=== PATIENT | female | born 1940 | race Caucasian/White ===

== ENCOUNTER → 2018-02-23 14:25 | Outpatient (CLI) | payer MEDICARE, OTHER, SELFPAY ==
[2018-02-23 15:20] LABS: Basophils % 0.8 % (0.1-2.0); Eosinophils # 0.1 K/mm3 (0.0-0.4); Eosinophils % 1.8 % (0.1-12.0); Hematocrit 34.3 % (37.0-47.0); Hemoglobin 10.4 g/dL (12.2-16.2); Lymphocytes # 0.5 K/mm3 (0.7-4.5); Lymphocytes % 14.4 K/mm3 (10-50); Mean Corpuscular HGB Conc 30.5 g/dL (31.8-35.4); Mean Corpuscular Hemoglobin 29.6 pg (27.0-31.2); Mean Corpuscular Volume 97.1 fl (81-99); Mean Platelet Volume 6.6 fl (7.4-10.4); Monocytes # 0.3 K/mm3 (0.1-1.0); Monocytes % 8.7 % (1.7-9.3); Neutrophils # 2.7 K/mm3 (1.8-7.8); Neutrophils % 74.3 % (37.0-80.0); Platelet Count 399 K/mm3 (142-424); Red Blood Count 3.53 M/mm3 (4.20-5.40); Red Cell Distribution Width 14.7 % (11.5-17.5); White Blood Count 3.6 K/mm3 (4.8-10.8)
[2018-02-23 20:00] LABS: Anion Gap 9.1 mEq/L (5-15); Blood Urea Nitrogen 15 mg/dL (7-18); Calcium 8.6 mg/dL (8.5-10.1); Carbon Dioxide 31 mmol/L (21.0-32.0); Chloride 99 mmol/L (98-107); Creatinine,Serum 0.67 mg/dL (0.55-1.02); Estimated Glomerular Filt Rate 85 ml/min (>60); GFR (African American) 103 ML/MIN (>60); Glucose 71 mg/dL (74-106); Potassium 4.1 mmoL/L (3.5-5.1); Sodium 135 mmol/L (136-145)
== END ==
PROVIDERS: PCP Internal Medicine Adolescent Medicine; Visit Provider Surgery
DX: R13.12 Dysphagia, oropharyngeal phase (principal); R13.10 Dysphagia, unspecified
CPT/HCPCS: 36415; 80048; 85025

== ENCOUNTER 2018-02-25 08:41 | Observation (INO) ==
--- NOTE | 2018-02-25 09:31 | Progress Note ---
[facility] Anesthesia Checklist - Patient Identification Patient Identification: Arm Band, Verbal (Name & ) - Structural Data Admitted From: Inpatient Planned Operative Procedure/s: PEG tube placement Consent for Planned Operative Procedure(s) Verified: Yes Verified Documents: Surgical Consent, History and Physical - NPO Status Verified Time NPO: 17:00 - Airway Assessment C-Spine Mobility Assessed: Yes (radiation, Throat/mouth/neck surgery due to cancer) TMJ Mobility Assessed: Yes Dentition: Dentures-good fit (Upper denture, lower missing teeth) - Neurological Assessment Level of Consciousness: Awake Hx Seizures: No Numbness or tingling in extremities: No - Anesthesia Plan Anesthesia Risk discussed: Yes Anesthesia Plan: Verified ASA Class: II Anesthesia Type: MAC [facility] History I have reviewed the patient's past medical history: Yes Medical History: Reports:: Cancer, Hyperlipidemia, Hypertension Denies:: Diabetes Mellitus Type 1, Diabetes Mellitus Type 2, Lung Disease, Seizures - *Social History Smoking Status: Never smoker Alcohol Intake: never Substance Use Type: denies use *Family Hx:: No significant family history
--- NOTE | 2018-02-25 10:13 | Procedure Note ---
- Procedure: Date: 02/25/18 Procedure Performed:: Percutaneous endoscopic gastrostomy (PEG) tube placement Indications:: Dysphagia secondary to radiation therapy Performing Provider:: Sang Lucas MD Referring Provider:: Dr. Patel Sedation:: Monitored anesthesia care Procedure:: After informed consent was obtained the patient was taken to the endoscopy suite. Monitored anesthesia care ensued as she was maintained in a supine position. The gastroscope was advanced into the gastric lumen. The stomach was insufflated. Transillumination and impulse noted. The site of prior percutaneous endoscopic gastrostomy tube was chosen for replacement and the area was infiltrated with 1% lidocaine after appropriate preparation and draping. A small transverse incision was made. A large bore Angiocath was placed in position under direct visualization. The retrieval wire was grasped with a snare and brought back in a retrograde manner. The tube was secured to the retrieval wire and then carefully maneuvered into position. The tube was secured at 2.5 cm. The gastroscope was once again placed in position and the "bumper" was noted to be in good position. No bleeding was noted. The tube was easily rotated. The gastroscope was removed. The tube was placed to drain bag and an abdominal binder was placed in position. The patient was transferred to recovery in stable condition. Findings:: Anchored at 2.5 cm Specimens:: None Recommendations:: Post PEG orders written Complications:: No immediate Estimated blood obtained (mL): 5
--- NOTE | 2018-02-25 13:28 | Pharmacy Consult Notes ---
[facility] Pharmacy VTE Monitoring - Patient Demographics Admission date: 02/25/18 Report Date: 02/25/18 Time: 13:28 Allergies/Adverse Reactions: Patient Allergies levofloxacin [From LEVAQUIN] Allergy (Unknown, Verified 02/24/18 15:17) LOSS OF MEMORY AND CIRCULATION Height: 1.55 m Weight: 44.48 kg - VTE Risk Was VTE Risk Assessment Performed: Yes VTE Score: 2 VTE Risk Level: Low Risk Clinical Trial Participant: No - Prophylaxis VTE Prophylaxis Ordered?: Yes Types of VTE Prophylaxis: TEDS Knee High Location of Applied Device: Bilateral Lower Extremeties
--- NOTE | 2018-02-26 06:42 | Progress Note ---
Subjective Patient reports: no new complaints (Doing well. No complaints overnight. No bleeding from PEG site.) Narrative: No new complaints overnight. No bleeding from PEG site. Pain minimal. Swallowing evaluation anticipated this AM. Exam Vital signs and Labs for Last 24 Hours: Temp Pulse Resp BP Pulse Ox 98.4 F 63 18 96/57 L 98 02/26/18 04:00 02/26/18 04:00 02/26/18 04:00 02/26/18 04:00 02/26/18 04:00 I & O for Last 24 hours: Intake & Output 02/23/18 02/24/18 02/25/18 02/26/18 11:59 11:59 11:59 11:59 Intake Total 200 / 200 940 / 940 Output Total 200 / 200 Balance 200 / 200 740 / 740 Weight 44.48 kg 45.416 kg Narrative: PEG site clean and dry. Abdomen soft and nontender. Progress Note: A&P (1) Dysphagia Status: Acute Assessment and plan: PEG placed. Swallowing evaluation this AM. Discharge after completed. Current Visit: No
--- NOTE | 2018-02-26 08:36 | Progress Note ---
Internal Medicine - PN: Subj *Date: 02/26/18 *Time: 08:33 Interval history: Appreciate surgical care of patient. As patient's primary metal stamper, I prescribed the GT insertion secondary to severe malnutrition and 32 pound wt loss, with no other means of nutrition secondary to surgical and radiation damage to oral structures. This need will persist for over 3 months. She will require Home Health for alf for GT care and instructions and wound care. Exam Vital signs and Labs for Last 24 Hours: Temp Pulse Resp BP Pulse Ox 98.1 F 64 16 99/57 L 96 02/26/18 08:00 02/26/18 08:00 02/26/18 08:00 02/26/18 08:00 02/26/18 08:00 I & O for Last 24 hours: Intake & Output 02/23/18 02/24/18 02/25/18 02/26/18 11:59 11:59 11:59 11:59 Intake Total 200 / 200 1779 / 1779 Output Total 200 / 200 Balance 200 / 200 1579 / 1579 Weight 98 lb 1 oz 100 lb 2 oz Assessment and Plan (1) Dysphagia Current visit: No Status: Acute Qualifiers: Dysphagia type: oropharyngeal phase Qualified Code(s): R13.12 - Dysphagia, oropharyngeal phase Category: Medical Code(s): R13.10 - Dysphagia, unspecified
--- NOTE | 2018-04-01 12:01 | Discharge Summary ---
General - General Admission date:: 02/25/18 Discharge date: 02/26/18 HPI HPI: This is a 77-year-old female with a history of radiation therapy for head neck carcinoma. She has significant/worsening dysphagia and the surgical service was consulted for percutaneous endoscopic gastrostomy tube placement. Hospital Course Hospital Course: The patient convalesced well. She tolerated the procedure and remained afebrile with stable normal vital signs. She was deemed appropriate for discharge on the morning of postoperative day 1. The patient was tolerating feeds at the time of discharge. No sign of bleeding or other postoperative complication noted at time of discharge. Objective Vital signs: Temp Pulse Resp BP Pulse Ox 98.1 F 64 16 99/57 L 98 02/26/18 08:00 02/26/18 08:00 02/26/18 08:00 02/26/18 08:00 02/26/18 08:00 no acute distress - *Routine HEENT Exam Head: Present: atraumatic - *Routine Neck Exam Absent: tenderness - Routine Chest/Breast/Axilla Exam Chest wall: Absent: tenderness - *Routine Respiratory Exam Absent: respiratory distress - *Routine Cardiovascular Exam Present: RRR - *Routine Abdominal Exam Present: soft - *Routine Extremities Exam Present: full ROM - *Routine Neurological Exam Present: alert, oriented X3 - Routine Psychiatric Exam Present: normal affect DS: Diagnosis - Discharge Diagnosis (1) Dysphagia Status: Acute Discharge Plan - Patient Discharge Instructions ACTIVITY: Continue current activity DIET: other (tube feeds as per primary service) Patient Instructions: DI for Esophageal Dysphagia - Follow up Plan Follow up with: Sang Lucas MD [Staff Physician] - 1 week Disposition: Home, Self-Senior Living Medications: Home Medications Medication Instructions Recorded Confirmed Type carvedilol 6.25 mg tablet 6.25 mg PO BID 02/23/18 03/08/18 History Levothyroxine Sodium 50 mcg PO DAILY 02/25/18 03/08/18 History [Levothyroxine 50mcg (0.05mg) Tab] Prescriptions/Medication Reconciliation: No Action carvedilol 6.25 mg tablet 6.25 mg PO BID Levothyroxine Sodium [Levothyroxine 50mcg (0.05mg) Tab] 50 mcg PO DAILY
== END 2018-02-26 12:05 | disposition home or self-care (01) ==
LOC: OUTP 08:41 → 2ND 08:41
PROVIDERS: ADMIT Surgery; ATTEND Surgery
CPT/HCPCS: 92610; 96374; G0378

== ENCOUNTER 2018-04-10 17:40 | Inpatient (IN) ==
[2018-04-10 18:44] LABS: Basophils % 0.2 % (0.1-2.0); Eosinophils % 0.2 % (0.1-12.0); Hematocrit 32.2 % (37.0-47.0); Hemoglobin 10.1 g/dL (12.2-16.2); Lymphocytes # 0.3 K/mm3 (0.7-4.5); Mean Corpuscular HGB Conc 31.3 g/dL (31.8-35.4); Mean Corpuscular Hemoglobin 30.6 pg (27.0-31.2); Mean Corpuscular Volume 97.7 fl (81-99); Mean Platelet Volume 7.4 fl (7.4-10.4); Monocytes # 0.3 K/mm3 (0.1-1.0); Monocytes % 2.4 % (1.7-9.3); Neutrophils # 13.5 K/mm3 (1.8-7.8); Neutrophils % 95.4 % (37.0-80.0); Platelet Count 510 K/mm3 (142-424); Red Blood Count 3.29 M/mm3 (4.20-5.40); Red Cell Distribution Width 15.9 % (11.5-17.5); White Blood Count 14.2 K/mm3 (4.8-10.8)
--- NOTE | 2018-04-10 18:50 | Emergency Department Note ---
ED Disposition Clinical Impression: Hypoxia, Dehydration Pneumonia Qualifiers: Pneumonia type: aspiration pneumonia Aspiration pneumonia type: due to gastric secretions Laterality: left Lung location: lower lobe of lung Qualified Code(s): J69.0 - Pneumonitis due to inhalation of food and vomit Disposition: Still a Patient Condition on Discharge: Fair - Critical Care Critical Care Time: No Attestation: On 04/10/18, the high probability of a clinically significant, sudden or life threatening deterioration of the following system(s) required my full and direct attention, intervention and personal management. The time I documented below is in addition to time spent performing reported procedures but includes the following listed in this critical care notation. Medical Decision Making - Beck Inquiry Pt receiving controlled substance: No Vital Signs: 04/10/18 17:42 04/10/18 18:12 04/10/18 18:42 Temperature Temperature Source Pulse Rate [Left Radial] 85 71 95 H Respiratory Rate 22 20 20 Blood Pressure [Right Arm] 174/97 H 158/84 H 158/90 H Blood Pressure Mean [Right Arm] 122 108 112 Blood Pressure Source [Right Arm] Automatic Cuff Automatic Cuff Automatic Cuff Blood Pressure Position [Right Arm] Sitting Sitting Sitting 02 Sat by Pulse Oximetry 94 L 97 97 Oxygen Delivery Method Nasal Cannula Nasal Cannula Nasal Cannula Oxygen Flow Rate (LPM) 4 4 4 04/10/18 19:38 04/10/18 20:14 04/10/18 20:30 Temperature 99.3 F Temperature Source Rectal Pulse Rate [Left Radial] 80 83 Respiratory Rate 22 28 H Blood Pressure [Right Arm] 152/95 H 146/85 H Blood Pressure Mean [Right Arm] 114 105 Blood Pressure Source [Right Arm] Automatic Cuff Blood Pressure Position [Right Arm] Sitting 02 Sat by Pulse Oximetry 93 L 93 L Oxygen Delivery Method Nasal Cannula Oxygen Flow Rate (LPM) 4 - Lab Data Lab Results 04/10/18 18:25: WBC 14.2 H, RBC 3.29 L, Hgb 10.1 L, Hct 32.2 L, MCV 97.7, MCH 30.6, MCHC 31.3 L, RDW 15.9, Plt Count 510 H, MPV 7.4, Neut % (Auto) 95.4 H, Lymph % (Auto) 2.0 L, [place] % (Auto) 2.4, Eos % (Auto) 0.2, Baso % (Auto) 0.2, Neut # (Auto) 13.5 H, Lymph # (Auto) 0.3 L, [place] # (Auto) 0.3, Eos # (Auto) 0.0, Baso # (Auto) 0.0, Total Counted 100, Neutrophils % (Manual) 57, Band Neutrophils % 23.0 H, Lymphocytes % (Manual) 6 L, Monocytes % (Manual) 3, [place] elocytes % 11.0 H, Platelet Estimate Marked increase, RBC Morphology Normal 04/10/18 18:25: Sodium 125 L, Potassium 3.3 L, Chloride 85 L, Carbon Dioxide 35 H, Anion Gap 8.3, BUN 25 H, Creatinine 0.84, Estimated Creat Clear 32, Estimated GFR 66, Est GFR ( Amer) 80, Glucose 87, Calcium 9.1, Total Bilirubin 0.5, AST 23, ALT 14, Alkaline Phosphatase 70, Troponin I < 0.02, Total Protein 7.7, Albumin 2.5 L, Globulin 5.2 H, Albumin/Globulin Ratio 0.5 L 04/10/18 18:35: Lactate 1.9 Result diagrams: 04/10/18 18:25 04/10/18 18:25 Orders (Tests/Meds): ED MEDICATIONS Generic Name Dose Route Start Last Admin Trade Name Freq PRN Reason Stop Dose Admin Ceftriaxone Sodium 1 gm/ 50 mls @ 100 mls/hr 04/10/18 20:45 Sodium Chloride IV 04/24/18 20:44 Q24H [facility] Protocol Clindamycin Phosphate 900 mg/ 106 mls @ 100 mls/hr 04/10/18 20:45 Sodium Chloride IV 04/24/18 20:44 Q8H [facility] Protocol Discontinued Medications Generic Name Dose Route Start Last Admin Trade Name Freq PRN Reason Stop Dose Admin Azithromycin 500 mg/ Sodium 250 mls @ 250 mls/hr 04/10/18 20:45 Chloride IV 04/24/18 20:44 Q24H [facility] Protocol Potassium Chloride 40 meq 04/10/18 19:09 04/10/18 20:06 Potassium Chloride 20meq/15ml Solution Udc G-TUBE 04/10/18 19:10 40 meq ONCE ONE Administration ORDERS Category Date Time Status Chest XR -- portable [XR chest portable] Stat Exams 04/10/18 17:50 Taken Blood Culture Stat Micro 04/10/18 18:35 Received - ECG Data Tracing #1 EKG interpreted by Matt Blake MD: Rhythm: sinus Rate: 92 Lipscomb: normal Ectopy: none Conduction: normal ST Segment Changes: Nonspecific T Wave Changes: Nonspecific Q Waves: none No evidence of acute ischemia or injury - Physician Consults Physician Consulted: Amanda Time: 19:20 Reason -: Admission Comment/Response: Agrees to admit the patient to the hospital. We discussed the patient's clinical information, including history, exam, laboratory and radiology results and ED course. Per hospital procedure, I will write temporary bridge inpatient orders on the patient. Specific orders requested by the admitting physician: States patient is at risk for aspiration. Rocephin, Zithromax and clindamycin. Oxygen and IV fluids. Medical Decision Narrative: Azithromycin not ordered due to conflict with clindamycin General Adult HPI - General Chief complaint: Shortness of Breath/Dyspnea Stated complaint: SOB Time Seen by Provider: 04/10/18 18:49 Mode of Arrival: EMS Limitations: No Limitations Description of Symptoms (Recalled from ER Triage Doc. by RN): to ed squad pt with hx of head and neck ca 4 years ago with recurrence dx in september 2017 pt finished 60 radiation txs 4 weeks ago. today c/o decreased po intake, pt with feeding tube inplace family also c/o "breathing is heavy" x several days. - History of Present Illness HPI narrative: Brought in by ambulance for altered mental status, difficulty breathing. History is primarily obtained from the patient's and daughter. The patient has a history of axilla facial cancer, multiple surgeries, and is nonverbal. Family states that she is generally weak for months but getting worse. More recently she seems to have increased respiratory congestion and difficulty breathing. Increased mucus production. Today she seemed to be lethargic and difficult to arouse. At this time however, she is awake and alert. No documented fevers. She does not have chronic pulmonary disease. She is not on oxygen or nebulizer treatments at home. Her cancer was diagnosed 4 years ago, stage IV. She has had 3 different surgeries. She just recently went through radiation therapy and will be getting immunotherapy as well after she gets a port placed. She has a feeding tube. Family states she does not take anything by mouth. 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 She currently denies any pain there. - Related Data Home Medications Medication Instructions Recorded Confirmed Levothyroxine Sodium 50 mcg PO DAILY 02/25/18 04/10/18 [Levothyroxine 50mcg (0.05mg) Tab] Ibuprofen [Motrin 400mg 400 mg PO NEEDED PRN 04/10/18 04/10/18 tablet] Miscellaneous [Unknown Home 0 each NOTAPPLIC CONSULT PHARMACY 04/10/18 04/10/18 Medication] Polyethylene Glycol 3350 [Miralax 17 gm PO DAILYP PRN 04/10/18 04/10/18 17gm Packet] Allergies Allergy/AdvReac Type Severity Reaction Status Date / Time levofloxacin [From LEVAQUIN] Allergy Unknown LOSS OF Verified 04/07/18 13:42 MEMORY AND CIRCULATION [facility] History I have reviewed the patient's past medical history: Yes Medical History: Reports:: Cancer, Hyperlipidemia, Hypertension Denies:: Diabetes Mellitus Type 1, Diabetes Mellitus Type 2, Lung Disease, Seizures Other Surgeries: Yes: Other - Social History Smoking Status: Never smoker Alcohol Intake: never Substance Use Type: denies use Occupational Status: disabled - Psychiatric History Expresses thoughts of harming self/others: None Suicide Plan Description: No Plan Family Hx:: No significant family history ROS Obtained: Yes Systems reviewed as appropriate & no additional complaints - Constitutional Constitutional: Reports fatigue, Denies fever(s), Reports poor appetite - Cardiovascular Cardiovascular: Denies chest pain - Respiratory Respiratory: Yes cough, Yes dyspnea, Yes excessive phlegm production - Gastrointestinal Gastrointestingal: Denies: abdominal pain, diarrhea, vomiting Physical Exam - General General appearance: alert Comment: Has a nasal cannula in her mouth. Breathing easily. Awake and alert. Writing on a notebook. - Head Head exam: atraumatic - Expanded ENT Exam Comment: Surgical deformity of maxilla, mandible, oral cavity. - Neck Neck exam: Present: normal inspection, trachea midline - Chest Chest inspection: Present: normal inspection, symmetric chest wall rise - Respiratory Respiratory exam: Present: other (Bilateral rhonchi) - Cardiovascular Cardiovascular exam: Present: regular rate, normal rhythm, normal heart sounds - Abdominal Exam Abdominal exam: Present: soft. Absent: distention, tenderness - Extremities Exam Extremities exam: Present: normal inspection, other (No tenderness of right knee. Full range of motion without pain. No calf tenderness. No swelling of the legs.) - Neurological Exam Neurological exam: Present: alert. Absent: motor sensory deficit - Psychiatric Psychiatric exam: Present: normal affect, normal mood - Skin Skin exam: Present: warm, dry
[2018-04-10 18:57] LABS: Alanine Aminotransferase 14 U/L (12-78); Albumin Level 2.5 gm/dL (3.4-5.0); Albumin/Globulin Ratio 0.5 (1.1-1.8); Alkaline Phosphatase 70 U/L (46-116); Anion Gap 8.3 mEq/L (5-15); Aspartate Amino Transferase 23 U/L (15-37); Bilirubin,Total 0.5 mg/dL (0.2-1.0); Blood Urea Nitrogen 25 mg/dL (7-18); Calcium 9.1 mg/dL (8.5-10.1); Carbon Dioxide 35 mmol/L (21.0-32.0); Chloride 85 mmol/L (98-107); Globulin 5.2 gm/dl (1.3-3.2); Glucose 87 mg/dL (74-106); Potassium 3.3 mmoL/L (3.5-5.1); Sodium 125 mmol/L (136-145); Total Protein,Serum 7.7 gm/dL (6.4-8.2)
[2018-04-10 19:48] LABS: Lymphocytes % 6 % (10-50); Monocytes % 3 % (2-9); Neutrophils % 57 % (42-76); Total Cells Counted 100
[2018-04-10 19:49] LABS: RBC Morphology Normal
[2018-04-11 06:13] LABS: Basophils % 0.2 % (0.1-2.0); Hematocrit 30.4 % (37.0-47.0); Hemoglobin 9.5 g/dL (12.2-16.2); Lymphocytes # 0.3 K/mm3 (0.7-4.5); Lymphocytes % 1.4 % (10-50); Mean Corpuscular HGB Conc 31.1 g/dL (31.8-35.4); Mean Corpuscular Hemoglobin 30.6 pg (27.0-31.2); Mean Corpuscular Volume 98.5 fl (81-99); Mean Platelet Volume 6.8 fl (7.4-10.4); Monocytes # 0.3 K/mm3 (0.1-1.0); Monocytes % 1.7 % (1.7-9.3); Neutrophils # 18.3 K/mm3 (1.8-7.8); Neutrophils % 96.6 % (37.0-80.0); Platelet Count 454 K/mm3 (142-424); Red Blood Count 3.09 M/mm3 (4.20-5.40); Red Cell Distribution Width 15.8 % (11.5-17.5); White Blood Count 18.9 K/mm3 (4.8-10.8)
[2018-04-11 06:18] LABS: Anion Gap 9.4 mEq/L (5-15); Calcium 8.5 mg/dL (8.5-10.1); Potassium 4.4 mmoL/L (3.5-5.1)
--- NOTE | 2018-04-11 07:47 | Pharmacy Consult Notes ---
[facility] Pharmacy VTE Monitoring - Patient Demographics Admission date: 04/10/18 Report Date: 04/11/18 Time: 07:47 Allergies/Adverse Reactions: Patient Allergies levofloxacin [From LEVAQUIN] Allergy (Unknown, Verified 04/07/18 13:42) LOSS OF MEMORY AND CIRCULATION Height: 1.55 m Weight: 41.821 kg Patient Problems: Current Active Problems Pneumonia (Acute) Hypoxia (Acute) Dehydration (Acute) - VTE Risk Labs: VTE Related Lab Results Hgb 9.5 g/dL (12.2-16.2) L 04/11/18 05:21 Hct 30.4 % (37.0-47.0) L 04/11/18 05:21 Plt Count 454 K/mm3 (142-424) H 04/11/18 05:21 BUN 31 mg/dL (7-18) H 04/11/18 05:21 Creatinine 0.85 mg/dL (0.55-1.02) 04/11/18 05:21 Estimated Creat Clear 31 mL/min (50-200) 04/11/18 05:21 VTE Score: 7 VTE Risk Level: Moderate Risk - Prophylaxis VTE Prophylaxis Ordered?: Yes Types of VTE Prophylaxis: TEDS Knee High Location of Applied Device: Bilateral Lower Extremeties - VTE Diagnosis Confirmed Treatment or plan recommended: Continue Current Treatment
--- NOTE | 2018-04-11 08:11 | History & Physical Report ---
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 She has been increasingly weak, had a G-tube placed approximately 4 weeks ago, but in spite of this is continue to lose weight. Her daughter reports that she is only able to get 1-3 cans of food and per day instead of the recommended 5 cans because of "feeling of fullness." On the day of admission she became somewhat confused, lethargic, and was brought to the emergency department. In the ER she was more awake, able to communicate by writing on a note pad and was oriented, but was found to be hyponatremic and have infiltrate consistent with pneumonia. Given her high risk for aspiration, dehydration and hyponatremia she was admitted to hospital for IV antibiotics, IV fluids and further diagnostic testing. [facility] History I have reviewed the patient's past medical history: Yes Medical History: Reports:: Cancer (STAGE 4 SQUAMOUS CELL HEAD AND NECK PER FAMILY), Hyperlipidemia, Hypertension Denies:: Diabetes Mellitus Type 1, Diabetes Mellitus Type 2, Lung Disease, Seizures Other Surgeries: Yes: Other - *Social History Smoking Status: Never smoker Alcohol Intake: never Substance Use Type: denies use Occupational Status: disabled Housing: house Household Members: family - Psychiatric History Expresses thoughts of harming self/others: None Suicide Plan Description: No Plan *Family Hx:: No significant family history Review of Systems - Constitutional Reports anorexia, Reports body ache(s), Reports fatigue, Denies fever(s), Denies headache(s) - Eyes Denies blind spots - ENT Denies abnormal hearing Comments: See H&P. Significant oropharyngeal dysfunction from significant surgical resections - *Cardiovascular Reports shortness of breath, Denies chest pain, Denies chest pain at rest, Denies generalized swelling - *Respiratory Reports change in phlegm color, Reports chest congestion, Reports cough - *Gastrointestinal Reports difficulty swallowing, Reports feeling full early, Denies abdominal pain, Denies belching, Denies coffee ground vomit - *Musculoskeletal Reports abnormal walking, Reports decreased muscle mass, Reports muscle weakness, Denies joint pain, Denies back pain - *Neurologic Reports abnormal walking, Reports behavioral changes, Reports unsteadiness, Reports dizziness Meds Home Medications Medication Instructions Recorded Confirmed Type Levothyroxine Sodium 50 mcg PO DAILY 02/25/18 04/10/18 History [Levothyroxine 50mcg (0.05mg) Tab] Ibuprofen [Motrin 400mg 400 mg PO QIDP PRN 04/10/18 04/11/18 History tablet] Miscellaneous [Unknown Home 0 each NOTAPPLIC CONSULT PHARMACY 04/10/18 04/10/18 History Medication] Polyethylene Glycol 3350 [Miralax 17 gm PO DAILYP PRN 04/10/18 04/10/18 History 17gm Packet] Allergies Allergy/AdvReac Type Severity Reaction Status Date / Time levofloxacin [From LEVAQUIN] Allergy Unknown LOSS OF Verified 04/07/18 13:42 MEMORY AND CIRCULATION Exam Vital signs and Labs for Last 24 Hours: Temp Pulse Resp BP Pulse Ox 98.0 F 68 20 140/80 94 L 04/11/18 04:00 04/11/18 04:00 04/11/18 04:00 04/11/18 04:00 04/11/18 04:00 Laboratory Results - last 24 hr 04/10/18 18:25: WBC 14.2 H, RBC 3.29 L, Hgb 10.1 L, Hct 32.2 L, MCV 97.7, MCH 30.6, MCHC 31.3 L, RDW 15.9, Plt Count 510 H, MPV 7.4, Neut % (Auto) 95.4 H, Lymph % (Auto) 2.0 L, [place] % (Auto) 2.4, Eos % (Auto) 0.2, Baso % (Auto) 0.2, Neut # (Auto) 13.5 H, Lymph # (Auto) 0.3 L, [place] # (Auto) 0.3, Eos # (Auto) 0.0, Baso # (Auto) 0.0, Total Counted 100, Neutrophils % (Manual) 57, Band Neutrophils % 23.0 H, Lymphocytes % (Manual) 6 L, Monocytes % (Manual) 3, Metamyelocytes % 11.0 H, Platelet Estimate Marked increase, RBC Morphology Normal 04/10/18 18:25: Sodium 125 L, Potassium 3.3 L, Chloride 85 L, Carbon Dioxide 35 H, Anion Gap 8.3, BUN 25 H, Creatinine 0.84, Estimated Creat Clear 32, Estimated GFR 66, Est GFR ( Amer) 80, Glucose 87, Calcium 9.1, Total Bilirubin 0.5, AST 23, ALT 14, Alkaline Phosphatase 70, Troponin I < 0.02, Total Protein 7.7, A lbumin 2.5 L, Globulin 5.2 H, Albumin/Globulin Ratio 0.5 L 04/10/18 18:35: Lactate 1.9 04/11/18 05:21: WBC 18.9 H D, RBC 3.09 L, Hgb 9.5 L, Hct 30.4 L, MCV 98.5, MCH 30.6, MCHC 31.1 L, RDW 15.8, Plt Count 454 H, MPV 6.8 L, Neut % (Auto) 96.6 H, Lymph % (Auto) 1.4 L, [place] % (Auto) 1.7, Eos % (Auto) 0.0 L, Baso % (Auto) 0.2, Neut # (Auto) 18.3 H, Lymph # (Auto) 0.3 L, [place] # (Auto) 0.3, Eos # (Auto) 0.0, Baso # (Auto) 0.0 04/11/18 05:21: Sodium 129 L, Potassium 4.4 D, Chloride 89 L, Carbon Dioxide 35 H, Anion Gap 9.4, BUN 31 H, Creatinine 0.85, Estimated Creat Clear 31, Estimated GFR 65, Est GFR ( Amer) 78, Glucose 93, Calcium 8.5 I & O for Last 24 hours: Intake & Output 04/08/18 04/09/18 04/10/18 04/11/18 11:59 11:59 11:59 11:59 Intake Total 560 / 560 Output Total 100 / 100 Balance 460 / 460 Weight 92 lb 3.2 oz Narrative: Patient is sleeping but when awake and recognizes me and is oriented at least x2. 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 No JVD. Skin appears dry. Oropharynx dry. Foul-smelling mucus in the oropharynx. Lungs have rhonchi and crackles in both lower lung quijano, right greater than left. Heart rate regular. Abdomen scaphoid, recent weight loss noted. (In my office 3 weeks ago patient was 95 pounds.) G-tube site looks good. Extremities are warm, skin is dry and recent weight loss noted. Otherwise good perfusion. Patient exceedingly weak but is able to move her extremities well. Assessment and Plan (1) Squamous cell carcinoma of head and neck Current visit: Yes Status: Acute Category: Medical Code(s): C76.0 - Malignant neoplasm of head, face and neck Significant disease burden. Patient will need increased nutrition before able to tolerate chemotherapy. Dietary consult. (2) Hyponatremia Current visit: Yes Status: Acute Category: Medical Code(s): E87.1 - Hypo- osmolality and hyponatremia IV fluids as ordered (3) Dehydration Current visit: Yes Status: Acute Category: Medical Code(s): E86.0 - Dehydration Fluids as ordered (4) Hypoxia Current visit: Yes Status: Acute Category: Medical Code(s): R09.02 - Hypoxemia Probably from aspiration. Supplemental oxygen. (5) Pneumonia Current visit: Yes Status: Acute Qualifiers: Pneumonia type: aspiration pneumonia Aspiration pneumonia type: due to gastric secretions Laterality: left Lung location: lower lobe of lung Qualified Code(s): J69.0 - Pneumonitis due to inhalation of food and vomit Category: Medical Code(s): J18.9 - Pneumonia, unspecified organism High risk for aspiration. Cover with antibiotics. (6) Dysphagia Current visit: No Status: Acute Qualifiers: Dysphagia type: oropharyngeal phase Qualified Code(s): R13.12 - Dysphagia, oropharyngeal phase Category: Medical Code(s): R13.10 - Dysphagia, unspecified Significant disease burden. See comments above
--- NOTE | 2018-04-11 08:24 | Progress Note ---
Internal Medicine - PN: Subj *Date: 04/11/18 *Time: 08:23 Interval history: Patient rested well overnight. When awakened is alert. Able to follow commands. Poor communication given her status post ENT surgeries. Exam Vital signs and Labs for Last 24 Hours: Temp Pulse Resp BP Pulse Ox 98.0 F 68 20 140/80 94 L 04/11/18 04:00 04/11/18 04:00 04/11/18 04:00 04/11/18 04:00 04/11/18 04:00 Laboratory Results - last 24 hr 04/10/18 18:25: WBC 14.2 H, RBC 3.29 L, Hgb 10.1 L, Hct 32.2 L, MCV 97.7, MCH 30.6, MCHC 31.3 L, RDW 15.9, Plt Count 510 H, MPV 7.4, Neut % (Auto) 95.4 H, Lymph % (Auto) 2.0 L, [place] % (Auto) 2.4, Eos % (Auto) 0.2, Baso % (Auto) 0.2, Neut # (Auto) 13.5 H, Lymph # (Auto) 0.3 L, [place] # (Auto) 0.3, Eos # (Auto) 0.0, Baso # (Auto) 0.0, Total Counted 100, Neutrophils % (Manual) 57, Band Neutrophils % 23.0 H, Lymphocytes % (Manual) 6 L, Monocytes % (Manual) 3, Metamyelocytes % 11.0 H, Platelet Estimate Marked increase, RBC Morphology Normal 04/10/18 18:25: Sodium 125 L, Potassium 3.3 L, Chloride 85 L, Carbon Dioxide 35 H, Anion Gap 8.3, BUN 25 H, Creatinine 0.84, Estimated Creat Clear 32, Estimated GFR 66, Est GFR ( Amer) 80, Glucose 87, Calcium 9.1, Total Bilirubin 0.5, AST 23, ALT 14, Alkaline Phosphatase 70, Troponin I < 0.02, Total Protein 7.7, Albumin 2.5 L, Globulin 5.2 H, Albumin/Globulin Ratio 0.5 L 04/10/18 18:35: Lactate 1.9 04/11/18 05:21: WBC 18.9 H D, RBC 3.09 L, Hgb 9.5 L, Hct 30.4 L, MCV 98.5, MCH 30.6, MCHC 31.1 L, RDW 15.8, Plt Count 454 H, MPV 6.8 L, Neut % (Auto) 96.6 H, Lymph % (Auto) 1.4 L, [place] % (Auto) 1.7, Eos % (Auto) 0.0 L, Baso % (Auto) 0.2, Neut # (Auto) 18.3 H, Lymph # (Auto) 0.3 L, [place] # (Auto) 0.3, Eos # (Auto) 0.0, Baso # (Auto) 0.0 04/11/18 05:21: Sodium 129 L, Potassium 4.4 D, Chloride 89 L, Carbon Dioxide 35 H, Anion Gap 9.4, BUN 31 H, Creatinine 0.85, Estimated Creat Clear 31, Estimated GFR 65, Est GFR ( Amer) 78, Glucose 93, Calcium 8.5 I & O for Last 24 hours: Intake & Output 04/08/18 04/09/18 04/10/18 04/11/18 11:59 11:59 11:59 11:59 Intake Total 560 / 560 Output Total 100 / 100 Balance 460 / 460 Weight 92 lb 3.2 oz Narrative: Patient's lungs sound rhonchorous, she is able to expand the lung quijano more appropriately. Heart rate regular. Mouth continues to be dry but is slightly improved. Skin turgor is improved. No edema noted. Abdomen soft, scaphoid, G-tube site looks good Assessment and Plan (1) Squamous cell carcinoma of head and neck Current visit: Yes Status: Acute Category: Medical Code(s): C76.0 - Malignant neoplasm of head, face and neck (2) Hyponatremia Current visit: Yes Status: Acute Category: Medical Code(s): E87.1 - Hypo- osmolality and hyponatremia (3) Dehydration Current visit: Yes Status: Acute Category: Medical Code(s): E86.0 - Dehydration (4) Hypoxia Current visit: Yes Status: Acute Category: Medical Code(s): R09.02 - Hypoxemia (5) Pneumonia Current visit: Yes Status: Acute Qualifiers: Pneumonia type: aspiration pneumonia Aspiration pneumonia type: due to gastric secretions Laterality: left Lung location: lower lobe of lung Qual ified Code(s): J69.0 - Pneumonitis due to inhalation of food and vomit Category: Medical Code(s): J18.9 - Pneumonia, unspecified organism (6) Dysphagia Current visit: No Status: Acute Qualifiers: Dysphagia type: oropharyngeal phase Qualified Code(s): R13.12 - Dysphagia, oropharyngeal phase Category: Medical Code(s): R13.10 - Dysphagia, unspecified (7) Severe protein-calorie malnutrition Current visit: Yes Status: Acute Category: Medical Code(s): E43 - Unspecified severe protein-calorie malnutrition See notes from H&P regarding problem list as noted above. This plan remains in place. Dietitian consult today to see if continuous tube feeds would be more appropriate for her situation. Will discuss with surgeon to see about Port-A-Cath placement. Continue treatment for pneumonia. Await culture results from blood.
[2018-04-11 09:57] LABS: Lymphocytes % 3 % (10-50); Monocytes % 2 % (2-9); Neutrophils % 70 % (42-76); RBC Morphology Normal; Total Cells Counted 100
[2018-04-12 06:17] LABS: Basophils % 0.1 % (0.1-2.0); Eosinophils % 0.1 % (0.1-12.0); Hematocrit 32.7 % (37.0-47.0); Hemoglobin 9.8 g/dL (12.2-16.2); Lymphocytes # 0.5 K/mm3 (0.7-4.5); Lymphocytes % 1.9 % (10-50); Mean Corpuscular HGB Conc 30.1 g/dL (31.8-35.4); Monocytes # 0.5 K/mm3 (0.1-1.0); Neutrophils # 24.3 K/mm3 (1.8-7.8); Platelet Count 463 K/mm3 (142-424); Red Blood Count 3.18 M/mm3 (4.20-5.40); Red Cell Distribution Width 15.6 % (11.5-17.5); White Blood Count 25.3 K/mm3 (4.8-10.8)
[2018-04-12 06:36] LABS: Anion Gap 5.3 mEq/L (5-15); Calcium 8.8 mg/dL (8.5-10.1); Potassium 4.3 mmoL/L (3.5-5.1)
[2018-04-12 08:07] LABS: Eosinophils % 1 % (0-3); Lymphocytes % 2 % (10-50); Monocytes % 2 % (2-9); Neutrophils % 75 % (42-76); Total Cells Counted 100
[2018-04-12 08:13] LABS: ABG Base Excess 12.7 mmol/L (-2.4-2.3); ABG HCO3 44.1 mmhg (22.0-26.0); ABG Oxygen Saturation 93 % (90-100); ABG PO2 88.6 mmhg (80-100); ABG TCO2 49.9 mmhg (23-27)
[2018-04-12 08:15] LABS: Allen's Test Patient Unable; Oxygen 3.5 LPM %
[2018-04-12 08:16] LABS: ABG PCO2 188.2 mmhg (35.0-45.0); ABG PH 6.99 mmol/L (7.35-7.45)
--- NOTE | 2018-04-12 09:08 | Death Note ---
Pronouncement Note - Date and Time of Date of : 04/12/18 Time of : 08:50 - Additional Data Confirmation of : no pulse, no respirations, no heart sounds Family: at bedside Additional persons at bedside: consumer services advisor Attending/PCP notified?: Yes Attending physician: Fortunato Patel MD Was code activated?: No Autopsy requested?: No school psychological examiner notified?: No Organ bank notified?: Yes Advance directives: No
--- NOTE | 2018-04-12 09:11 | Discharge Summary ---
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 She has been increasingly weak, had a G-tube placed approximately 4 weeks ago, but in spite of this is continue to lose weight. Her daughter reports that she is only able to get 1-3 cans of food and per day instead of the recommended 5 cans because of "feeling of fullness." On the day of admission she became somewhat confused, lethargic, and was brought to the emergency department. In the ER she was more awake, able to communicate by writing on a note pad and was oriented, but was found to be hyponatremic and have infiltrate consistent with pneumonia. Given her high risk for aspiration, dehydration and hyponatremia she was admitted to hospital for IV antibiotics, IV fluids and further diagnostic testing. Hospital Course Hospital Course: Patient was admitted to hospital, placed on intravenous antibiotics for aspiration pneumonia and also placed on IV fluids for dehydration and hyponatremia. Patient initially improved and did well, dietary consultation was obtained to optimize her nutritional status. Patient did well with this, and rested well on the night of the . Unfortunately, on the morning of the , this morning, she became extremely somnolent and hypoxic, blood gas was done showing pH of 6.99 consistent with acute/severe respiratory acidosis. BiPAP therapy was tried, however was ineffective and patient became bradycardic and hypotensive. Her family, her daughter and were at bedside and in consultation with physicians decided that given her significant cancer burden, overall poor prognosis and poor likelihood of survival that aggressive resuscitation measures such as intubation were not indicated. At that point BiPAP was held and she from acute respiratory failure from her cancer and concomitant comorbidities at 8:50 AM this morning, 04/12/18. Objective Vital signs: Temp Pulse Resp BP Pulse Ox 96.9 F L 85 24 112/59 L 95 04/12/18 04:00 04/12/18 04:00 04/12/18 04:00 04/12/18 04:00 04/12/18 04:00 Narrative: See prior notes and nurse's notes for clinical course. Results Labs on day of discharge: Labs from last 24 hours 04/12/18 04/12/18 04/12/18 08:10 05:50 05:50 WBC 25.3 H* D RBC 3.18 L Hgb 9.8 L Hct 32.7 L MCV 103.0 H MCH 31.0 MCHC 30.1 L RDW 15.6 Plt Count 463 H MPV 7.0 L Neut % (Auto) 96.0 H Lymph % (Auto) 1.9 L [place] % (Auto) 2.0 Eos % (Auto) 0.1 Baso % (Auto) 0.1 Neut # (Auto) 24.3 H Lymph # (Auto) 0.5 L [place] # (Auto) 0.5 Eos # (Auto) 0.0 Baso # (Auto) 0.0 Total Counted 100 Neutrophils % (Manual) 75 Band Neutrophils % 19.0 H Lymphocytes % (Manual) 2 L Atypical Lymphs % 1.0 Monocytes % (Manual) 2 Eosinophils % (Manual) 1 Metamyelocytes % Platelet Estimate Slight increase RBC Morphology Specimen Source R radial O2 % 3.5 lpm ABG pH 6.99 L* ABG pCO2 188.2 H ABG pO2 88.6 ABG HCO3 44.1 H ABG Total CO2 49.9 H ABG O2 Saturation 93 ABG Base Excess 12.7 H Samuel Test Patient unable Sodium 133 L Potassium 4.3 Chloride 94 L Carbon Dioxide 38 H Anion Gap 5.3 BUN 33 H Creatinine 0.82 Estimated Creat Clear 31 Estimated GFR 68 Est GFR ( Amer) 82 Glucose 164 H Calcium 8.8 04/11/18 05:21 WBC RBC Hgb Hct MCV MCH MCHC RDW Plt Count MPV Neut % (Auto) Lymph % (Auto) [place] % (Auto) Eos % (Auto) Baso % (Auto) Neut # (Auto) Lymph # (Auto) [place] # (Auto) Eos # (Auto) Baso # (Auto) Total Counted 100 Neutrophils % (Manual) 70 Band Neutrophils % 24.0 H Lymphocytes % (Manual) 3 L Atypical Lymphs % Monocytes % (Manual) 2 Eosinophils % (Manual) Metamyelocytes % 1.0 Platelet Estimate Slight increase RBC Morphology Normal Specimen Source O2 % ABG pH ABG pCO2 ABG pO2 ABG HCO3 ABG Total CO2 ABG O2 Saturation ABG Base Excess Samuel Test Sodium Potassium Chloride Carbon Dioxide Anion Gap BUN Creatinine Estimated Creat Clear Estimated GFR Est GFR ( Amer) Glucose Calcium Preliminary micro results at discharge 04/11/18 11:25 Sputum Culture - Preliminary Sputum - Expectorated Sputum DS: Diagnosis - Discharge Diagnosis (1) Squamous cell carcinoma of head and neck Status: Acute (2) Hyponatremia Status: Acute (3) Dehydration Status: Acute (4) Hypoxia Status: Acute (5) Pneumonia Status: Acute (6) Dysphagia Status: Acute (7) Severe protein-calorie malnutrition Status: Acute Discharge Plan - Patient Discharge Instructions - Follow up Plan Disposition: Home Medications: Home Medications Medication Instructions Recorded Confirmed Type Levothyroxine Sodium 50 mcg PO DAILY 02/25/18 04/10/18 History [Levothyroxine 50mcg (0.05mg) Tab] Ibuprofen [Motrin 400mg 400 mg PO Q6HP PRN 04/10/18 04/11/18 History tablet] Polyethylene Glycol 3350 [Miralax 17 gm PO DAILYP PRN 04/10/18 04/10/18 History 17gm Packet] Calcium Carbonate/Vitamin D3 1 each PO DAILY 04/11/18 04/11/18 History [Caltrate 600 Plus D3 Tablet] Fluticasone Propionate [Flonase 1 spr NS DAILY 04/11/18 04/11/18 History 50mcg nasal spray 16gm] Loratadine [Claritin] 10 mg PO DAILY 04/11/18 04/11/18 History Prescriptions/Medication Reconciliation: No Action Ibuprofen [Motrin 400mg tablet] 400 mg PO Q6HP PRN PRN Reason: pain Fluticasone Propionate [Flonase 50mcg nasal spray 16gm] 1 spr NS DAILY Levothyroxine Sodium [Levothyroxine 50mcg (0.05mg) Tab] 50 mcg PO DAILY Polyethylene Glycol 3350 [Miralax 17gm Packet] 17 gm PO DAILYP PRN PRN Reason: Constipation Loratadine [Claritin] 10 mg PO DAILY Calcium Carbonate/Vitamin D3 [Caltrate 600 Plus D3 Tablet] 1 each PO DAILY
== END 2018-04-12 08:50 | disposition expired ==
LOC: ICU 17:40 → ER 17:40 → OBSVTOIN 19:30 → ICU 21:09 → 2ND 04-11 17:19
PROVIDERS: ADMIT Internal Medicine Adolescent Medicine; ATTEND Internal Medicine Adolescent Medicine